=== PATIENT | female | born 1985 | race Caucasian/White ===

== ENCOUNTER 2017-02-25 23:13 | Emergency (ER) | payer SELFPAY ==
--- NOTE | 2017-02-25 23:15 | NUR ---
REFUSED TO BE TRIAGED OR OBTAIN VS. DR. SALCEDO AT BEDSIDE TALKING TO PT.
--- NOTE | 2017-02-25 23:15 | NUR ---
PT BIB [facility] WITH A C/O ETOH. PT WAS FOUND ON THE GROUND BY RESCUE. PT WAS AMBULATORY ON SCENE. PT ARRIVED AA&O X3. PT JUMPED OFF THE EMS GURNEY AND WAS STANDING SPEAKING TO DR. SALCEDO. PT AMBULATED TO THE BATHROOM AND URINE SAMPLE WAS OBTAINED.
--- NOTE | 2017-02-25 23:20 | NUR ---
Patient does not wish to proceed with medical care recommended by Dr. SALCEDO. Patient given information related to possible complications, up to and including , which could occur as a result of leaving the hospital at this time. Patient verbalizes understanding of risks involved due to leaving against medical advice. Patient has signed AMA form. PT THEN AMBULATED OUT WITH A STEADY GAIT.
== END 2017-02-25 23:26 | disposition left against medical advice (07) ==
LOC: EDBD → ER 23:15
DX: F10.129 Alcohol abuse with intoxication, unspecified (principal)

== ENCOUNTER 2017-02-26 00:41 | Emergency (ER) | payer SELFPAY ==
[~2017-02-26] VITALS: Ht 144.8 cm; Wt 38.6 kg
--- NOTE | 2017-02-26 00:41 | NUR ---
PT BIB [facility] WITH A C/O ETOH ABUSE. PT IS RESPONDING TO PAINFUL STIMULI. [facility] [place] [facility]. PT OPENED HER MOUTH FOR THERMOMETER. PT IS ON THE MONITOR AND CONTINUOUS PULSE OX. VSS.
--- NOTE | 2017-02-26 00:59 | NUR ---
CALLED LAB FOR BLOOD DRAW.
--- NOTE | 2017-02-26 01:00 | NUR ---
PT BEING PLACED IN A C-COLLAR BY GEOFFREY GONZALEZ
--- NOTE | 2017-02-26 01:00 | NUR ---
SATURATION EQUIPMENT OPERATOR IS AT THE BEDSIDE FOR BLOOD DRAW.
--- NOTE | 2017-02-26 01:06 | NUR ---
PT IS GOING TO [facility] [place] WITH [employer].
[2017-02-26 01:16] LABS: BASOPHILS % (AUTO) 0.4 % (0.0-2.0); EOSINOPHILS % (AUTO) 0.6 % (0.0-6.0); HEMATOCRIT 35 % (33-45); HEMOGLOBIN 11.9 g/dL (11.5-14.8); LYMPHOCYTES # (AUTO) 1.5 /CMM (0.8-4.8); LYMPHOCYTES % (AUTO) 23.3 % (20.0-44.0); MEAN CORPUSCULAR HEMOGLOBIN 30 PG (26.0-33.0); MEAN CORPUSCULAR HGB CONC 34 g/dl (31.0-36.0); MEAN CORPUSCULAR VOLUME 89 fL (82-100); MONOCYTES # (AUTO) 0.7 /CMM (0.1-1.30); MONOCYTES % (AUTO) 10.5 % (2.0-12.0); NEUTROPHILS # (AUTO) 4.1 /CMM (1.8-8.9); NEUTROPHILS % (AUTO) 65.2 % (43.0-81.0); PLATELET COUNT (AUTO) 299 /CMM (150-450); RED BLOOD CELL COUNT(AUTO) 3.94 MIL/uL (4.0-5.2); WHITE BLOOD COUNT (AUTO) 6.2 K/uL (4.3-11.0)
--- NOTE | 2017-02-26 01:20 | NUR ---
PT RETURNED FROM [facility] VIA [facility]
[2017-02-26 01:24] LABS: CALCIUM, SERUM 8.6 mg/dL (8.5-10.1); CREATININE 0.8 mg/dL (0.6-1.3); POTASSIUM 3.6 mmol/L (3.5-5.1)
[2017-02-26 01:31] LABS: ALBUMIN 3.8 g/dL (3.4-5.0); BILIRUBIN,DIRECT 0.1 mg/dL (0.0-0.2); BILIRUBIN,TOTAL 0.2 mg/dL (0.2-1.0); TOTAL PROTEIN, SERUM 7.4 g/dL (6.4-8.2)
[2017-02-26 01:34] LABS: SALICYLATE 1.1 mg/dL (2.8-20.0)
[2017-02-26 01:40] LABS: THYROID STIMULATING HORMONE 1.166 uIU/mL (0.358-3.74)
--- NOTE | 2017-02-26 02:48 | NUR ---
Patient discharged to [facility] in stable condition. Written and verbal after care instructions given. Patient verbalizes understanding of instruction. PT AMBULATORY WITH A STEADY GAIT. VSS
--- NOTE | 2017-02-26 02:50 | NUR ---
PT AMBULATED OUT WITH A STEADY GAIT.
[2017-02-26 02:51] VITALS: BP 99/59
== END 2017-02-26 02:51 ==
LOC: ER 00:48
DX: F10.129 Alcohol abuse with intoxication, unspecified (principal); R51 Headache
CPT/HCPCS: 36415; 70450; 72125; 80048; 80076; 80305; 80329; 84443; 84703; 85025; 99285; A4606; G0480 ×2; Z7610